=== PATIENT | male | born 1985 | race Caucasian/White ===

== ENCOUNTER 2018-05-08 15:07 | Emergency (ER) | payer BC, OTHER ==
[~2018-05-08] VITALS: Ht 167.6 cm; Wt 72.6 kg
[2018-05-08] MEDS ORDERED: ALL DAY ALLERGY10 M2 PO (15:19)
[2018-05-08] MEDS ORDERED: FIBER500 MG PO (15:19)
[2018-05-08] MEDS ORDERED: IBUPROFEN 200200 M1 PO (15:19)
[2018-05-08 15:31] LABS: ABSOLUTE NEUTROPHILS 8.6 thou/uL (1.4-8.2); BASOPHILS 0.1 % (0.0-2.0); EOSINOPHILS 5.2 % (0.0-3.0); HEMATOCRIT 42.7 % (42.0-52.0); HEMOGLOBIN 15.3 gm/dL (14.0-18.0); LYMPHOCYTES 8.3 % (24.0-44.0); MCH 30.4 pg (26.0-34.0); MCHC 35.8 g/dL (28.0-37.0); MCV 84.9 fL (80.0-100.0); MONOCYTES 6.9 % (1.0-8.0); PLATELET COUNT 259 thou/uL (150-400); POLYS 79.5 % (36.0-66.0); RBC 5.03 mil/uL (4.50-6.00); RDW 13.5 % (10.5-14.5); WBC 10.9 thou/uL (4.0-11.0)
[2018-05-08 15:37] LABS: URINE BILIRUBIN NEGATIVE (Negative); URINE BLOOD NEGATIVE (Negative); URINE CLARITY CLEAR; URINE COLOR YELLOW; URINE GLUCOSE-RANDOM* NEGATIVE (Negative); URINE KETONES 2+ (Negative); URINE LEUKOCYTES-REFLEX NEGATIVE (Negative); URINE NITRITE-REFLEX NEGATIVE (Negative); URINE PROTEIN (DIPSTICK) NEGATIVE (Negative); URINE SPECIFIC GRAVITY >= 1.030 (1.005-1.035); URINE UROBILINOGEN 0.2 E.U./dl (0.2-1.0)
[2018-05-08 15:43] LABS: CALCIUM 9.5 mg/dL (8.5-10.1); CREATININE 1.2 mg/dL (0.7-1.3); POTASSIUM 3.9 mmol/L (3.5-5.1)
[2018-05-08 15:52] LABS: ALBUMIN 4.6 g/dL (3.4-5.0); TOTAL BILIRUBIN 0.6 mg/dL (<0.1-1.0); TOTAL PROTEIN 8.2 g/dL (6.4-8.2)
[2018-05-08] MEDS ORDERED: BENTYL 20 MG TA20 M1 PO (16:25)
[2018-05-08] MEDS ORDERED: ZOFRAN ODT4 MG PO (16:25)
[2018-05-08 17:24] VITALS: BP 123/77
== END 2018-05-08 17:24 | disposition home or self-care (01) ==
LOC: ER 15:07
PROVIDERS: Emergency Medicine
DX: K52.9 Noninfective gastroenteritis and colitis, unspecified (principal)